=== PATIENT | female | born 1995 | race Two or more races ===

== ENCOUNTER 2022-05-06 16:10 | Emergency (ER) | payer BC ==
[~2022-05-06] VITALS: Ht 165.1 cm; Wt 68.0 kg
[2022-05-06 16:18] VITALS: BP 113/78
--- NOTE | 2022-05-06 16:45 | NUR ---
PT SEEN BY MD AT BEDSIDE FOR EVAL
[2022-05-06] MEDS ORDERED: PRED50TA PO (16:57)
[2022-05-06] MEDS ORDERED: predniSONE 20 MG TABLET ONE (17:01)
[2022-05-06] MEDS ORDERED: diphenhydrAMINE HCL 25 MG CAPSULE ONE (17:02)
[2022-05-06] MEDS ORDERED: FAMOTIDINE (20 MG) 20 MG TABLET ONE (17:03)
--- NOTE | 2022-05-06 17:06 | NUR ---
PO MEDICATIONS GIVEN, JENNIFER WELL.
[2022-05-06] MEDS: FAMOTIDINE (20 MG) 20 MG TABLET PO ONE (17:11)
[2022-05-06] MEDS: DIPHENHYDRAMINE HCL 12.5 MG/5 ML UDC PO ONE (17:11)
[2022-05-06] MEDS: predniSONE 50 MG TABLET PO ONE (17:11)
--- NOTE | 2022-05-06 17:11 | NUR ---
Patient discharged to home in stable condition. Written and verbal after care instructions given. Patient verbalizes understanding of instruction.
== END 2022-05-06 17:13 | disposition home or self-care (01) ==
LOC: ER 16:10
DX: T78.40XA Allergy, unspecified, initial encounter (principal); Z90.89 Acquired absence of other organs; X58.XXXA Exposure to other specified factors, initial encounter
CPT/HCPCS: 99284; Q0163; J7512